=== PATIENT | male | born 1970 | race Caucasian/White ===

== ENCOUNTER → 2017-02-17 | Outpatient (CLI) | payer OTHER ==
--- NOTE | 2017-02-17 14:25 | MR ---
EXAMINATION: MRI of the right shoulder HISTORY: Impingement COMPARISON: Radiographs dated 12/16/2016 TECHNIQUE: Multiplanar and multisequence images obtained through the right shoulder without contrast . FINDINGS: There is a type II acromion. Mild acromioclavicular osseous changes are noted. There is a trace subdeltoid fluid. There is a tiny undersurface partial thickness tear of the right the junctio n of the supraspinatus and infraspinatus at the footplate. The teres minor tendon appears intact. Th e long head biceps tendon is present within the bicipital groove. The subscapularis tendon appears n ormal. Mild articular cartilage thinning is noted within the glenohumeral joint. The inferior glenoh umeral ligament appears intact. No muscular atrophy. No joint effusion. No notable bone marrow signa l changes. IMPRESSION: 1. Small partial thickness tear at the junction of the supraspinatus and infraspinatus tendons. Line 3. Mild acromioclavicular osteoarthritic changes noted.
== END ==
LOC: MW.MRI 09:02
PROVIDERS: ATTEND Orthopaedic Surgery
DX: M75.41 Impingement syndrome of right shoulder (principal); M75.111 Incomplete rotator cuff tear or rupture of right shoulder, not specified as traumatic; M19.011 Primary osteoarthritis, right shoulder
CPT/HCPCS: 73221-26-RT; 73221-RT

== ENCOUNTER 2017-04-06 06:18 | Day surgery (SDC) | payer OTHER ==
[~2017-04-06 06:18] MED LIST: Lactated Ringers 1,000 ML IV SCH; ceFAZolin 2 GM in Premix Bag 1 BAG IV SCH
[2017-04-06] MEDS ORDERED: Lidocaine 2% 5 ML SDV ONE (07:08)
[2017-04-06] MEDS ORDERED: fentaNYL 250 MCG/5 ML SDV ONE (07:08)
[2017-04-06] MEDS ORDERED: Rocuronium 10 MG/ML 10 ML Syringe ONE (07:08)
[2017-04-06] MEDS ORDERED: Neostigmine Methylsulfate 1 MG/ML 5 ML Syringe ONE (07:08)
[2017-04-06] MEDS ORDERED: Propofol 200 MG/20 ML SDV ONE (07:08)
[2017-04-06] MEDS ORDERED: Ondansetron 4 MG/2 ML SDV ONE (07:08)
[2017-04-06] MEDS ORDERED: Midazolam 1 MG/ML 2 ML SDV ONE (07:08)
[2017-04-06] MEDS ORDERED: Acetaminophen/HYDROcodone 325-10 MG Tab PO PRN (08:00)
[2017-04-06] MEDS ORDERED: Ketorolac 10 MG Tab PO PRN (08:00)
--- NOTE | 2017-04-06 08:06 | PCM.PREANE ---
Preanesthetic Assessment - Procedure Proposed Procedure: Right shoulder decompression - Anesthesia/Transfusion/Family Hx Anesthesia History: Prior Anesthesia Without Reaction Family History of Anesthesia Reaction: No Transfusion History: No Prior Transfusion(s) Intubation History: Unknown - Review of Systems General: Other (chronic low back pain plus HPI) Pulmonary: No Symptoms Cardiovascular: No Symptoms Gastrointestinal: No symptoms Neurological: Pre-Existing Deficit (low back pain - chiropractic treatments and rest and meds) Other: Reports: None - Physical Assessment NPO Status Date: 04/06/17 NPO Status Time: 06:30 O2 Sat by Pulse Oximetry: 96 Respiratory Rate: 16 Vital Signs: Last Vital Signs Temp Pulse 56 L 04/06/17 06:50 Resp 16 04/06/17 06:50 BP 108/70 04/06/17 06:50 Pulse Ox 96 04/06/17 06:50 Height: 6 ft 9 in Weight: 260 lb ASA Class: 2 Mental Status: Alert & Oriented x3 Airway Class: Mallampati = 2 Dentition: Reports: Normal Dentition Thyro-Mental Finger Breadths: 4 Mouth Opening Finger Breadths: 3 ROM/Head Extension: Full Lungs: Clear to auscultation, Normal respiratory effort Cardiovascular: Regular Rate, Regular Rhythm, No Murmurs - Allergies Allergies/Adverse Reactions: Allergies Allergy/AdvReac Type Severity Reaction Status Date / Time clindamycin Allergy Diarrhea Verified 04/04/17 11:24 codeine Allergy Vomiting Verified 04/04/17 11:24 - Blood Blood Available: No Product(s) Available: None - Anesthesia Plan Free Text/Narrative:: Possible interscalene block discussed depending on surgical intervention done. he and spouse agreed. Pre-Op Medication Ordered: None - Acknowledgements Anesthesia Type Planned: General Anesthesia (OETT) Pt an Appropriate Candidate for the Planned Anesthesia: Yes Alternatives and Risks of Anesthesia Discussed w Pt/Guardian: Yes Pt/Guardian Understands and Agrees with Anesthesia Plan: Yes PreAnesthesia Questionnaire HEENT History: Reports: Hard of Hearing Other HEENT History: has upper and lower removable partial dentures, has bilateral hearing aides Cardiovascular History: Reports: None Respiratory History: Reports: None Gastrointestinal History: Reports: None Genitourinary History: Reports: None Musculoskeletal History: Reports: Fracture Other Musculoskeletal History: hx of fx left wrist and right hand Neurological History: Reports: Seizure Other Neuro History: has one seizure 10 years ago, none since Psychiatric History: Reports: None Endocrine/Metabolic History: Reports: None Hematologic History: Reports: None Immunologic History: Reports: None Oncologic (Cancer) History: Reports: None Dermatologic History: Reports: None - Infectious Disease History Infectious Disease History: Reports: C-Difficile, Chicken Pox - Past Surgical History Head Surgeries/Procedures: Reports: None HEENT Surgical History: Reports: LASIK Cardiovascular Surgical History: Reports: None Respiratory Surgical History: Reports: None GI Surgical History: Reports: None Male Surgical History: Reports: None Endocrine Surgical History: Reports: None Neurological Surgical History: Reports: None Musculoskeletal Surgical History: Reports: None Oncologic Surgical History: Reports: None Dermatological Surgical History: Reports: None - SUBSTANCE USE Smoking Status *Q: Former Smoker Tobacco Use Within Last Twelve Months: Smokeless Tobacco Days Per Week of Alcohol Use: 4 Number of Drinks Per Day: 4 Total Drinks Per Week: 16 Recreational Drug Use History: No - HOME MEDS Home Medications: Home Meds Aspirin [Adult Low Dose Aspirin EC] 81 mg PO DAILY 04/04/17 [History] Calcium Carbonate [Calcium] 500 mg PO BID 04/04/17 [History] Cholecalciferol (Vitamin D3) [Vitamin D3] 1,000 unit PO DAILY 04/04/17 [History] Fish Oil/[place]-3 Fatty Acids [Fish Oil 1,000 MG] 1 gm PO BID 04/04/17 [History] Gluc/[place]-Msm#1/Vit C/Harvinder/Bor [Wekxzvx-Smehe-ZHK Complex Cplt] 1 tab PO BID 03/16 [History] Naproxen Sodium [Aleve] 220 mg PO ASDIRECTED PRN 04/04/17 [History] - CURRENT (IN HOUSE) MEDS Current Meds: Current Medications Hydrocodone Bitart/Acetaminophen ([place] 325-10 Mg) 1 - 2 tab PO Q4H PRN PRN Reason: Pain Lactated Ringer's (Ringers, Lactated) 1,000 mls @ 100 mls/hr IV ASDIRECTED LUZ Last Admin: 04/06/17 07:24 Dose: 100 mls/hr Cefazolin Sodium/Dextrose 2 gm (/ Premix) 50 mls @ 100 mls/hr IV ONCALL LUZ Ketorolac Tromethamine (Toradol) 10 mg PO Q6H PRN PRN Reason: Pain Stop: 04/11/17 08:01 Discontinued Medications Fentanyl (Sublimaze) Confirm Administered Dose 250 mcg .ROUTE .STK-MED ONE Stop: 04/06/17 07:09 Glycopyrrolate () Confirm Administered Dose 1 mg .ROUTE .STK-MED ONE Stop: 04/06/17 07:09 Lidocaine (Xylocaine-Mpf 2%) Confirm Administered Dose 5 ml .ROUTE .STK-MED ONE Stop: 04/06/17 07:09 Midazolam HCl (Versed 1 Mg/Ml) Confirm Administered Dose 2 mg .ROUTE .STK-MED ONE Stop: 04/06/17 07:09 Neostigmine Methylsulfate (Neostigmine) Confirm Administered Dose 5 mg .ROUTE .STK-MED ONE Stop: 04/06/17 07:09 Ondansetron HCl (Zofran) Confirm Administered Dose 4 mg .ROUTE .STK-MED ONE Stop: 04/06/17 07:09 Propofol (Diprivan 20 Ml) Confirm Administered Dose 200 mg .ROUTE .STK-MED ONE Stop: 04/06/17 07:09 Rocuronium [place] (Zemuron) Confirm Administered Dose 100 mg .ROUTE .STK-MED ONE Stop: 04/06/17 07:09
[2017-04-06] MEDS ORDERED: ceFAZolin 1 GM Vial ONE (08:16)
[2017-04-06] MEDS ORDERED: Sodium Chloride 0.9% 20 ML ONE (08:16)
[2017-04-06] MEDS ORDERED: Phenylephrine/Normal Saline 100 MCG/ML 10 ML Syringe ONE (08:20)
[2017-04-06] MEDS ORDERED: ePHEDrine 50 MG/ML SDV ONE (08:29)
[2017-04-06] MEDS ORDERED: fentaNYL 100 MCG/2 ML SDV ONE (08:36)
--- NOTE | 2017-04-06 09:40 | PCM.OPNOTE ---
- General Post-Op/Procedure Note Date of Surgery/Procedure: 04/06/17 Operative Procedure(s): R shoulder arthroscopy with limited debridement and SAD Post-Op Diagnosis: 1. R shoulder degenerative anterior labrum tear. 2. R shoulder impingement Anesthesia Technique: General ET tube Primary Surgeon: Maryuri Regan Restuarant Crew Worker: Gildardo Edwards in mLs: 5 Condition: Good Free Text/Narrative:: #[id number]
--- NOTE | 2017-04-06 10:00 | PCM.POSTAN ---
POST ANESTHESIA ASSESSMENT - MENTAL STATUS Mental Status: alert, oriented - RESPIRATORY Respiratory Status: respiratory rate WNL, airway patent, O2 saturation stable - CARDIOVASCULAR CV Status: pulse rate WNL, blood pressure stable - GASTROINTESTINAL GI Status: no symptoms - PAIN Pain Score: 6 (Asked to move arm; pillowed elbow and upper arm in the sling) - POST OP HYDRATION Hydration Status: adequate & stable - OBSERVATIONS Free Text/Narrative:: To Phase II.
[2017-04-06] MEDS ORDERED: Ketorolac 30 MG/ML SDV IVPUSH ONE (10:11)
[2017-04-06] MEDS: fentaNYL 100 MCG/2 ML SDV IVPUSH PRN ×2 (10:25→10:35)
[2017-04-06 11:38] VITALS: BP 104/70
[2017-04-06] MEDS ORDERED: Acetaminophen/HYDROcodone 325-10 MG Tab PO ONE (12:43)
--- NOTE | 2017-04-06 13:06 | PCM48HPAN ---
Post Anesthesia Note - EVALUATION WITHIN 48HRS OF ANESTHETIC Vital Signs in Normal Range: Yes Patient Participated in Evaluation: Yes Respiratory Function Stable: Yes Airway Patent: Yes Cardiovascular Function Stable: Yes Hydration Status Stable: Yes Pain Control Satisfactory: Yes Nausea and Vomiting Control Satisfactory: Yes Mental Status Recovered: Yes - COMMENTS/OBSERVATIONS Free Text/Narrative:: Patient seen before leaving facility without complaint about care and satified with pain relief. Note just written now.
--- NOTE | 2017-04-06 14:14 | OR ---
SURGEON: Maryuri Regan MD DATE OF PROCEDURE: 04/06/2017 PREOPERATIVE DIAGNOSIS: Right shoulder impingement. POSTOPERATIVE DIAGNOSES: 1. Right shoulder impingement. 2. Right shoulder degenerative anterior labral tear. PROCEDURE: Right shoulder arthroscopy with: 1. Subacromial decompression with release of coracoacromial ligament and acromioplasty. 2. Debridement of anterior labrum. ASSISTING: Gildardo Edwards PA-C. ANESTHESIA: General. ESTIMATED BLOOD LOSS: 5 mL. TOURNIQUET TIME: 0 minutes. COMPLICATIONS: None. DVT PROPHYLAXIS: PAS boots to bilateral lower extremities. IMPLANTS USED: None. BRIEF HISTORY: Eric is a 46-year-old male, who has had complaint of progressive right shoulder pain. He did have brief relief with injections, however, his pain did recur. Due to his lack of response to conservative treatment, I did recommend surgical intervention. The risks and goals of procedure were discussed with the patient and were documented preoperatively. He agreed to proceed. DESCRIPTION OF PROCEDURE: The patient was properly identified and brought to the operating room. He was transferred from the OR cart and placed on the operating table in supine position. General anesthesia was administered. After adequate anesthesia was obtained, he was placed into a beach-chair type position. Care was taken to pad all bony prominences. His head was secured. He did have full range of motion at the shoulder. The right upper extremity was then prepped in standard fashion using ChloraPrep solution. It was then sterilely draped. A time-out was performed to ensure correct site and procedure. Preoperative antibiotics were given. The surgical site had been marked preoperatively. Bony landmarks were marked with a marking pen. Approximately 30 mL of normal saline was introduced into the glenohumeral joint. A posterior portal was established. Blunt trocar and cannula were introduced into the glenohumeral joint. Camera, inflow, and outflow were assembled. The rotator interval did not show significant synovitis. An anterior portal was established and a probe was inserted. The subscapularis and its insertion onto the humeral head was visualized and probed and found to be intact. No loose bodies were identified in the subscapular recess. The anterior labrum was then visualized. It did show some minor degenerative fraying, which was debrided with a shaver. The biceps and its attachment were visualized and probed and was found to be stable. The biceps was pulled into the joint and no synovitis or longitudinal tearing was noted. The glenoid did show evidence of grade 2 chondromalacia, which was diffuse. The humeral head showed no signs of degenerative findings. Posterior labrum was intact. I entered the axillary pouch and no loose bodies were identified. The bare area was noted posteriorly. This had good cuff attachment extending anteriorly. I was able to follow the cuff anteriorly and no articular-sided tearing was noted. The instruments were then removed from the glenohumeral joint. I then entered the subacromial space. A lateral portal was established. Extensive bursitis was noted. This was resected using a combination of the shaver and electrocautery. The undersurface of the acromion was cleared. He did have a type 2 acromion, which did cause impingement anteriorly. A 5.0 mm jeri was used to perform an acromioplasty after the coracoacromial ligament had been released. This provided good decompression of the subacromial space. The rotator cuff was then extensively probed. It was found to be completely intact with no tearing noted. The instruments were then removed from the shoulder. The portal sites were closed with 3-0 nylon. Xeroform gauze was placed over the wound and a bulky dressing was applied. He was placed into a sling. He was awakened from his anesthetic and transferred back to the operating room cart. He was brought to recovery room in stable condition. All needle and sponge counts were correct. FORREST / ASIF /[id number]
== END 2017-04-06 12:45 | disposition home or self-care (01) ==
LOC: MW.SDS 06:18
PROVIDERS: ATTEND Orthopaedic Surgery
DX: M75.41 Impingement syndrome of right shoulder (principal); S43.491A Other sprain of right shoulder joint, initial encounter; M94.211 Chondromalacia, right shoulder; Z88.1 Allergy status to other antibiotic agents; Z88.8 Allergy status to other drugs, medicaments and biological substances; Z79.82 Long term (current) use of aspirin; Z79.899 Other long term (current) drug therapy; Z87.891 Personal history of nicotine dependence; Z72.0 Tobacco use; Z78.9 Other specified health status
CPT/HCPCS: 29822; 29826; A9270; J0690; J1885; J2250; J2405; J3010; J7120; 01630; 88304; J2704

== ENCOUNTER 2017-07-27 06:33 | Day surgery (SDC) | payer OTHER ==
[2017-07-27] MEDS ORDERED: fentaNYL 100 MCG/2 ML SDV ONE (06:52)
[2017-07-27] MEDS ORDERED: Midazolam 1 MG/ML 2 ML SDV ONE (06:52)
[2017-07-27] MEDS ORDERED: Propofol 200 MG/20 ML SDV ONE (06:52)
[2017-07-27] MEDS ORDERED: Mineral Oil/Petrolatum Ophth Oint 3.5 GM Tube ONE (07:04)
[2017-07-27] MEDS ORDERED: Dexamethasone 4 MG/ML 5 ML MDV ONE ×2 (07:06→07:36)
[2017-07-27] MEDS ORDERED: Ondansetron 4 MG/2 ML SDV ONE (07:06)
[2017-07-27] MEDS ORDERED: Phenylephrine 1% 10 MG/ML SDV ONE (07:21)
[2017-07-27] MEDS ORDERED: Midazolam 1 MG/ML 2 ML SDV IVPUSH ONE (07:34)
[2017-07-27] MEDS ORDERED: fentaNYL 100 MCG/2 ML SDV IVPUSH ONE (07:35)
[2017-07-27] MEDS ORDERED: Bupivacaine 0.5% 30 ML SDV ONE (07:37)
[2017-07-27] MEDS ORDERED: Acetaminophen/HYDROcodone 325-10 MG Tab PO PRN (08:00)
--- NOTE | 2017-07-27 08:05 | PCM.PREANE ---
Preanesthetic Assessment - Anesthesia/Transfusion/Family Hx Anesthesia History: Prior Anesthesia Without Reaction Family History of Anesthesia Reaction: No Transfusion History: No Prior Transfusion(s) Intubation History: Unknown - Review of Systems General: No Symptoms Pulmonary: No Symptoms Cardiovascular: No Symptoms Gastrointestinal: No Symptoms Neurological: No Symptoms Other: Reports: None - Physical Assessment NPO Status Date: 07/26/17 NPO Status Time: 23:45 O2 Sat by Pulse Oximetry: 94 Respiratory Rate: 16 Vital Signs: Last Vital Signs Temp 36.8 C 07/27/17 07:05 Pulse 54 L 07/27/17 07:05 Resp 16 07/27/17 07:05 BP 127/73 07/27/17 07:05 Pulse Ox 94 L 07/27/17 07:05 Height: 2.06 m Weight: 117.934 kg ASA Class: 1 Mental Status: Alert & Oriented x3 Airway Class: Mallampati = 1 Dentition: Reports: Normal Dentition ROM/Head Extension: Full Lungs: Clear to Auscultation, Normal Respiratory Effort Cardiovascular: Regular Rate, Regular Rhythm - Allergies Allergies/Adverse Reactions: Allergies Allergy/AdvReac Type Severity Reaction Status Date / Time clindamycin Allergy Diarrhea Verified 04/04/17 11:24 codeine Allergy Vomiting Verified 04/04/17 11:24 ketorolac [From Toradol] Allergy Nausea and Verified 07/22/17 09:41 Vomiting - Acknowledgements Anesthesia Type Planned: General Anesthesia, Regional Block Pt an Appropriate Candidate for the Planned Anesthesia: Yes Alternatives and Risks of Anesthesia Discussed w Pt/Guardian: Yes Pt/Guardian Understands and Agrees with Anesthesia Plan: Yes Additional Comments: pmh: being worked up for high serum iron. no diagnosed hemochromatosis yet. Block placed in pre op holding for post op analgesia PreAnesthesia Questionnaire HEENT History: Reports: Hard of Hearing Other HEENT History: has upper and lower removable partial dentures, has bilateral hearing aides Cardiovascular History: Reports: None Respiratory History: Reports: None Gastrointestinal History: Reports: None Genitourinary History: Reports: None Musculoskeletal History: Reports: Back Pain, Chronic, Other (See Below) Other Musculoskeletal History: hx fx left wrist, back injury several years ago Neurological History: Reports: None Psychiatric History: Reports: None Endocrine/Metabolic History: Reports: None Hematologic History: Reports: None Immunologic History: Reports: None Oncologic (Cancer) History: Reports: None Dermatologic History: Reports: None - Infectious Disease History Infectious Disease History: Reports: C-Difficile, Chicken Pox - Past Surgical History Head Surgeries/Procedures: Reports: None HEENT Surgical History: Reports: LASIK Cardiovascular Surgical History: Reports: None Respiratory Surgical History: Reports: None GI Surgical History: Reports: None Male Surgical History: Reports: None Endocrine Surgical History: Reports: None Neurological Surgical History: Reports: None Musculoskeletal Surgical History: Reports: Shoulder Surgery Other Musculoskeletal Surgeries/Procedures:: hx of rt shoulder arthroscopy Oncologic Surgical History: Reports: None Dermatological Surgical History: Reports: None - SUBSTANCE USE Smoking Status *Q: Former Smoker Tobacco Use Within Last Twelve Months: Snuff/Dip Days Per Week of Alcohol Use: 1 Number of Drinks Per Day: 4 Total Drinks Per Week: 4 Recreational Drug Use History: No - HOME MEDS Home Medications: Home Meds Aspirin [Adult Low Dose Aspirin EC] 81 mg PO DAILY 04/04/17 [History] Calcium Carbonate [Calcium] 2 tab PO DAILY 04/04/17 [History] Cholecalciferol (Vitamin D3) [Vitamin D3] 1,000 unit PO DAILY 04/04/17 [History] Fish Oil/[place]-3 Fatty Acids [Fish Oil 1,000 MG] 2 tab PO DAILY 04/04/17 [ History] Gluc/[place]-Msm#1/Vit C/Harvinder/Bor [Dkvncqo-Omgpp-LUA Complex Cplt] 1 tab PO BID 03/16 [History] Naproxen Sodium [Aleve] 2 tab PO ASDIRECTED PRN 07/22/17 [History] - CURRENT (IN HOUSE) MEDS Current Meds: Current Medications Hydrocodone Bitart/Acetaminophen ([place] 325-10 Mg) 1 - 2 tab PO Q4H PRN PRN Reason: Pain Cefazolin Sodium/Dextrose 2 gm (/ Premix) 50 mls @ 100 mls/hr IV ONCALL LUZ Lactated Ringer's (Ringers, Lactated) 1,000 mls @ 100 mls/hr IV ASDIRECTED LUZ Last Admin: 07/27/17 06:55 Dose: 100 mls/hr Discontinued Medications Bupivacaine HCl (Marcaine 0.5%) Confirm Administered Dose 30 ml .ROUTE .STK-MED ONE Stop: 07/27/17 07:38 Dexamethasone (Dexamethasone) Confirm Administered Dose 20 mg .ROUTE .STK-MED ONE Stop: 07/27/17 07:07 Dexamethasone (Dexamethasone) Confirm Administered Dose 20 mg .ROUTE .STK-MED ONE Stop: 07/27/17 07:37 Fentanyl (Sublimaze) Confirm Administered Dose 100 mcg .ROUTE .STK-MED ONE Stop: 07/27/17 06:53 Fentanyl (Sublimaze) 100 mcg IVPUSH ONETIME ONE Stop: 07/27/17 07:36 Last Admin: 07/27/17 08:01 Dose: 50 mcg Lidocaine HCl (Xylocaine-Mpf 1%) Confirm Administered Dose 5 ml .ROUTE .STK-MED ONE Stop: 07/27/17 07:06 Midazolam HCl (Versed 1 Mg/Ml) Confirm Administered Dose 2 mg .ROUTE .STK-MED ONE Stop: 07/27/17 06:53 Midazolam HCl (Versed 1 Mg/Ml) 2 mg IVPUSH ONETIME ONE Stop: 07/27/17 07:35 Last Admin: 07/27/17 07:49 Dose: 2 mg Mineral Oil/White Petrolatum (Lacri-Lube S.O.P Oint) Confirm Administered Dose 3.5 gm .ROUTE .STK-MED ONE Stop: 07/27/17 07:05 Ondansetron HCl (Zofran) Confirm Administered Dose 4 mg .ROUTE .STK-MED ONE Stop: 07/27/17 07:07 Phenylephrine HCl (Elian-Synephrine) Confirm Administered Dose 10 mg .ROUTE .STK- MED ONE Stop: 07/27/17 07:22 Propofol (Diprivan 20 Ml) Confirm Administered Dose 200 mg .ROUTE .STK-MED ONE Stop: 07/27/17 06:53
--- NOTE | 2017-07-27 08:08 | PCM.SN ---
- Free Text/Narrative Note: L isb block placed in pre op holding, full monitors, nc O2, ramírez wheel with lido. tritch extinguised at < .3, bupiv 0.5% with 8 mg dex giben in 5 ml increments with 60 sec pause beteen increments. no signs of toxicity. 30 ml total of 0.5% bupiv. no complications.
[2017-07-27] MEDS ORDERED: Succinylcholine/Normal Saline 200 MG/10 ML Syringe ONE (08:11)
[2017-07-27] MEDS ORDERED: Rocuronium 10 MG/ML 10 ML Syringe ONE (08:11)
[2017-07-27] MEDS ORDERED: fentaNYL 100 MCG/2 ML SDV IVPUSH PRN (09:37)
--- NOTE | 2017-07-27 10:05 | PCM.OPNOTE ---
- General Post-Op/Procedure Note Date of Surgery/Procedure: 07/27/17 Operative Procedure(s): L shoulder arthroscopy with debridement of anterior labrum and SAD Post-Op Diagnosis: L shoulder impingement and degenerative anterior labral tear Anesthesia Technique: General ET Tube, Regional Block Primary Surgeon: Maryrui Regan Acquisition Editor: Gildardo Edwards in mLs: 5 Condition: Good Free Text/Narrative:: #[id number]
--- NOTE | 2017-07-27 10:46 | PCM.POSTAN ---
POST ANESTHESIA ASSESSMENT - MENTAL STATUS Mental Status: Alert, Oriented - RESPIRATORY Respiratory Status: Respiratory Rate WNL, Airway Patent, O2 Saturation Stable - CARDIOVASCULAR CV Status: Pulse Rate WNL, Blood Pressure Stable - GASTROINTESTINAL GI Status: No Symptoms - POST OP HYDRATION Hydration Status: Adequate & Stable
--- NOTE | 2017-07-27 10:47 | PCM48HPAN ---
Post Anesthesia Note - EVALUATION WITHIN 48HRS OF ANESTHETIC Vital Signs in Normal Range: Yes Patient Participated in Evaluation: Yes Respiratory Function Stable: Yes Airway Patent: Yes Cardiovascular Function Stable: Yes Hydration Status Stable: Yes Pain Control Satisfactory: Yes Nausea and Vomiting Control Satisfactory: Yes Mental Status Recovered: Yes
[2017-07-27 11:53] VITALS: BP 104/63
--- NOTE | 2017-07-27 11:57 | OR ---
SURGEON: Maryuri Regan MD DATE OF PROCEDURE: 07/27/2017 PREOPERATIVE DIAGNOSIS: Left shoulder impingement syndrome. POSTOPERATIVE DIAGNOSES: 1. Left shoulder impingement syndrome. 2. Left shoulder degenerative anterior labral tear. PROCEDURE: Left shoulder arthroscopy with. 1. Subacromial decompression with release of coracoacromial ligament and acromioplasty. 2. Debridement of degenerative anterior labral tear. GLAZIER [employer] FURNITURE: Gildardo Edwards PA-C. ANESTHESIA: General. ESTIMATED BLOOD LOSS: 5 mL. TOURNIQUET TIME: 0 minutes. COMPLICATIONS: None. DVT PROPHYLAXIS: PAS boots to bilateral lower extremities. IMPLANTS USED: None. BRIEF HISTORY: Eric is a 47-year-old male, who has had complaint of progressive left shoulder pain. He has previously undergone a right shoulder arthroscopy and has done well. Due to his lack of response to conservative treatment, I did recommend surgical intervention. The risks and goals of procedure were discussed with the patient and were documented preoperatively. He agreed to proceed. DESCRIPTION OF PROCEDURE: The patient was properly identified and brought to the operating room. He was transferred from the OR cart and placed on the operating room table in supine position. General anesthesia was administered. An interscalene block had been administered preoperatively. After adequate anesthesia was obtained, the patient was placed in a beach-chair position. Care was taken to pad all bony prominences. His head was secured. The left upper extremity was then prepped in standard fashion using ChloraPrep solution. It was then sterilely draped. A time-out was performed to ensure correct site and procedure. Preoperative antibiotics were given. The surgical site had been marked preoperatively. Bony landmarks were identified with a marking pen. Approximately 30 mL of normal saline was introduced into the glenohumeral joint. A posterior incision was made. Blunt trocar and cannula were introduced into the glenohumeral joint. Camera, inflow, and outflow were assembled. The rotator interval was identified. This did show a large amount of synovitis. An anterior portal was established. The biceps attachment appeared intact. The biceps was pulled into the joint and no fraying or synovitis was noted along the distal aspect of the biceps. The anterior labrum did show some degenerative fraying and this was resected with electrocautery. The subscapularis was then visualized. It was probed and found to be intact. No loose bodies were within the subscapular recess. Both the glenoid and humeral head showed no signs of degenerative changes. The posterior labrum showed no significant tearing. The axillary pouch showed no loose bodies with minor synovitis. The arm was then brought into an abducted and externally rotated position. The bare area was noted posteriorly. As I progressed forward, the rotator cuff was intact. No partial tearing was noted. The instruments were then removed from the glenohumeral joint. The arm was brought back into a neutral position. I then entered the subacromial space. Again, camera, inflow, and outflow were assembled. A lateral portal was established. He did have extensive bursitis present. Using a combination of shaver and electrocautery, this was resected. Portion of it was quite hemorrhagic and electrocautery was used to help control the bleeding. The coracoacromial ligament was then released anteriorly. He had a large spur along the anterior acromion, which appeared to be causing some impingement on the underlying rotator cuff as there was some superficial fraying of the cuff tissue. Once the ligament was released, a 5.0 mm oscillating jeri was then introduced and an acromioplasty was performed. This provided good decompression of the subacromial space and no further impingement was noted. The rotator cuff was then inspected. It appeared to be completely intact. It was probed and there were no signs of fraying or softening. The instruments were then removed from the shoulder. The portal sites were closed with 3-0 nylon. Xeroform gauze was placed over the wound and a bulky dressing was applied. He was awakened from his anesthetic and transferred back to the operating room cart. He was brought to recovery room in stable condition. All needle and sponge counts were correct. FORREST / ASIF /[id number]
== END 2017-07-27 11:35 | disposition home or self-care (01) ==
LOC: MW.SDS 06:33
PROVIDERS: ATTEND Orthopaedic Surgery
DX: M75.42 Impingement syndrome of left shoulder (principal); M24.112 Other articular cartilage disorders, left shoulder; M65.812 Other synovitis and tenosynovitis, left shoulder; M75.52 Bursitis of left shoulder; Z79.82 Long term (current) use of aspirin; Z79.899 Other long term (current) drug therapy; Z88.1 Allergy status to other antibiotic agents; Z88.5 Allergy status to narcotic agent; Z88.6 Allergy status to analgesic agent; Z87.891 Personal history of nicotine dependence; Z98.890 Other specified postprocedural states
CPT/HCPCS: 29822; 29826; A9270; J1100; J2250; J2370; J2405; J3010; J7120; 01630; 64415; 88304; J2704